=== PATIENT | female | born 1980 | race Caucasian/White ===

== ENCOUNTER 2019-01-07 21:17 | Emergency (ER) | payer OTHER, MEDICAID ==
[~2019-01-07] VITALS: Ht 160 cm; Wt 108.9 kg
[2019-01-07 21:24] VITALS: BP_SYST 157
== END 2019-01-07 22:33 | disposition left against medical advice (07) ==
LOC: SED 21:17
DX: F22 Delusional disorders (principal); F20.9 Schizophrenia, unspecified
CPT/HCPCS: 99281